=== PATIENT | male | born 1970 | race Caucasian/White ===

== ENCOUNTER 2024-08-26 00:29 | Emergency (ER) | payer MEDICAID ==
[~2024-08-26] VITALS: Ht 177.8 cm; Wt 76.0 kg
[2024-08-26 01:07] VITALS: BP 146/88; PULSE 68; RESP 16; TEMP 98.8; O2SAT 96
== END 2024-08-26 01:33 | disposition home or self-care (01) ==
LOC: ER 00:32
DX: Z02.89 Encounter for other administrative examinations (principal)
CPT/HCPCS: 99283